=== PATIENT | female | born 1950 | race African-American/Black ===

== ENCOUNTER 2019-10-04 11:26 | Emergency (ER) | payer SELFPAY ==
[~2019-10-04] VITALS: Ht 152.4 cm; Wt 83.0 kg
[2019-10-04 12:01] LABS: Basophils # (auto) 0 uL; Basophils % (auto) 1.2 % (0.0-2.0); Eosinophils # (auto) 0.1 uL; Eosinophils % (auto) 3.8 % (0.0-7.0); Hematocrit 37.3 % (36.0-46.0); Lymphocytes # (auto) 1.3 uL; Lymphocytes % (auto) 33.7 % (10.0-50.0); Mean Corpuscular Hemoglobin 31.5 pg (28.0-32.0); Mean Corpuscular Hgb Conc. 32.2 g/dL (32.0-36.0); Mean Corpuscular Volume 97.6 fL (80.0-100.0); Monocytes # (auto) 0.3 uL; Monocytes % (auto) 6.9 % (0.0-12.0); Neutrophils # (auto) 2.1 uL; Neutrophils % (auto) 54.4 % (37.0-80.0); Nucleated Red Blood Cells % 0.2 %; Platelet Count (auto) 226 10^3/uL (140-450); Red Blood Cells 3.82 10^6/uL (4.0-5.20); Red Cell Distribution Width 15.1 % (11.8-14.3); White Blood Cell 3.9 10^3/uL (4.4-10.8)
[2019-10-04 12:18] LABS: Albumin 3.4 g/dL (3.4-5.0); Anion Gap 5 (5-15); Blood Urea Nitrogen 13 mg/dL (7-18); Calcium 8.6 mg/dL (8.5-10.1); Carbon Dioxide 29 mmol/L (21-32); Chloride 110 mmol/L (98-107); Glucose 86 mg/dL (74-106); Potassium 3.9 mmol/L (3.5-5.1); Sodium 144 mmol/L (136-145)
[2019-10-04 12:26] LABS: Alanine Aminotransferase 24 U/L (13-56); Alkaline Phosphatase 51 U/L (45-117); Aspartate Aminotransferase 26 U/L (15-37); BUN/Creatinine Ratio 12.4; Bilirubin, Total 0.3 mg/dL (0.2-1.0); GFR African American 67 mL/min; GFR Non-African American 55 mL/min; Total Protein 7.2 g/dL (6.4-8.2)
[2019-10-04] MEDS ORDERED: FUROSEMIDE 40 MG/4 ML VIAL IV ONE (14:00)
[2019-10-04 18:46] VITALS: BP 140/71
== END 2019-10-04 18:46 | disposition home or self-care (01) ==
LOC: ER 11:26
DX: R06.02 Shortness of breath (principal); I13.0 Hypertensive heart and chronic kidney disease with heart failure and stage 1 through stage 4 chronic kidney disease, or unspecified chronic kidney disease; E11.22 Type 2 diabetes mellitus with diabetic chronic kidney disease; N18.9 Chronic kidney disease, unspecified; I50.9 Heart failure, unspecified; Z88.2 Allergy status to sulfonamides
CPT/HCPCS: 36415; 71046; 80053; 83735; 83880; 84484; 85025; 93005; 96374; 99284; J1940

== ENCOUNTER 2020-05-20 11:44 | Emergency (ER) | payer SELFPAY ==
[~2020-05-20] VITALS: Ht 152.4 cm; Wt 81.6 kg
[2020-05-20] MEDS ORDERED: cloNIDine HCL 0.1 MG TAB PO ONE (12:30)
[2020-05-20 14:30] VITALS: BP 173/76
== END 2020-05-20 18:14 | disposition home or self-care (01) ==
LOC: ER 11:44
DX: M79.601 Pain in right arm (principal); E11.22 Type 2 diabetes mellitus with diabetic chronic kidney disease; I13.0 Hypertensive heart and chronic kidney disease with heart failure and stage 1 through stage 4 chronic kidney disease, or unspecified chronic kidney disease; I50.9 Heart failure, unspecified; N18.9 Chronic kidney disease, unspecified; E78.5 Hyperlipidemia, unspecified
CPT/HCPCS: 93971

== ENCOUNTER 2022-06-01 22:36 | Emergency (ER) | payer BC ==
[~2022-06-01] VITALS: Ht 157.5 cm; Wt 149.0 kg
[2022-06-01 22:40] VITALS: BP 153/73
== END 2022-06-02 04:38 | disposition left against medical advice (07) ==
LOC: ER 22:36
DX: R04.0 Epistaxis (principal); I13.0 Hypertensive heart and chronic kidney disease with heart failure and stage 1 through stage 4 chronic kidney disease, or unspecified chronic kidney disease; E11.22 Type 2 diabetes mellitus with diabetic chronic kidney disease; N18.9 Chronic kidney disease, unspecified; I50.9 Heart failure, unspecified; E78.5 Hyperlipidemia, unspecified; Z88.2 Allergy status to sulfonamides

== ENCOUNTER 2022-06-24 14:04 | Emergency (ER) | payer BC ==
[~2022-06-24] VITALS: Ht 152.4 cm; Wt 66.4 kg
[2022-06-24 14:20] VITALS: BP 121/62
[2022-06-24 15:40] LABS: Basophils # (auto) 0 10 ^3/uL (0-0.2); Eosinophils # (auto) 0.1 10 ^3/uL (0-0.8); Eosinophils % (auto) 3.3 % (0.0-7.0); Hematocrit 35.6 % (36.0-46.0); Hemoglobin 11.4 g/dL (12.2-16.2); Lymphocytes # (auto) 1.7 10 ^3/uL (0.4-5.4); Lymphocytes % (auto) 39.3 % (10.0-50.0); Mean Corpuscular Hemoglobin 30.5 pg (28.0-32.0); Mean Corpuscular Hgb Conc. 32.1 g/dL (32.0-36.0); Monocytes # (auto) 0.2 10 ^3/uL (0-1.3); Monocytes % (auto) 4.9 % (0.0-12.0); Neutrophils # (auto) 2.3 10 ^3/uL (1.6-8.6); Neutrophils % (auto) 51.5 % (37.0-80.0); Nucleated Red Blood Cells % 0.2 %; Red Blood Cells 3.75 10^6/uL (4.0-5.20); Red Cell Distribution Width 15.1 % (11.8-14.3); White Blood Cell 4.4 10^3/uL (4.4-10.8)
[2022-06-24 16:07] LABS: Potassium 3.7 mmol/L (3.5-5.1)
[2022-06-24 16:24] LABS: Albumin 3.6 g/dL (3.4-5.0); BUN/Creatinine Ratio 15.8; Bilirubin, Total 0.4 mg/dL (0.2-1.0); Calcium 9.4 mg/dL (8.5-10.1)
== END 2022-06-24 22:12 | disposition left against medical advice (07) ==
LOC: ER 14:04
DX: R04.0 Epistaxis (principal); I13.0 Hypertensive heart and chronic kidney disease with heart failure and stage 1 through stage 4 chronic kidney disease, or unspecified chronic kidney disease; E11.22 Type 2 diabetes mellitus with diabetic chronic kidney disease; N18.9 Chronic kidney disease, unspecified; I50.9 Heart failure, unspecified; Z88.2 Allergy status to sulfonamides; Z53.29 Procedure and treatment not carried out because of patient's decision for other reasons
CPT/HCPCS: 30901; 36415; 80053; 84484; 85025

== ENCOUNTER 2023-02-20 13:56 | Emergency (ER) | payer BC ==
[~2023-02-20] VITALS: Ht 152.4 cm; Wt 64.0 kg
[2023-02-20 14:33] LABS: Basophils # (auto) 0 10 ^3/uL (0-0.2); Basophils % (auto) 0.8 % (0.0-2.0); Eosinophils # (auto) 0 10 ^3/uL (0-0.8); Eosinophils % (auto) 0.8 % (0.0-7.0); Hematocrit 40.3 % (36.0-46.0); Hemoglobin 13.2 g/dL (12.2-16.2); Lymphocytes # (auto) 1.2 10 ^3/uL (0.4-5.4); Lymphocytes % (auto) 20.9 % (10.0-50.0); Mean Corpuscular Hemoglobin 31.1 pg (28.0-32.0); Mean Corpuscular Hgb Conc. 32.7 g/dL (32.0-36.0); Monocytes # (auto) 0.3 10 ^3/uL (0-1.3); Monocytes % (auto) 4.4 % (0.0-12.0); Neutrophils # (auto) 4.3 10 ^3/uL (1.6-8.6); Neutrophils % (auto) 73.1 % (37.0-80.0); Nucleated Red Blood Cells % 0.2 %; Red Blood Cells 4.25 10^6/uL (4.0-5.20); Red Cell Distribution Width 13.7 % (11.8-14.3); White Blood Cell 5.9 10^3/uL (4.4-10.8)
[2023-02-20] MEDS ORDERED: cloNIDine HCL 0.1 MG TAB PO ONE (14:45)
[2023-02-20 14:55] LABS: Albumin 3.4 g/dL (3.4-5.0); Calcium 9.3 mg/dL (8.5-10.1); Potassium 3.4 mmol/L (3.5-5.1)
[2023-02-20 14:59] LABS: BUN/Creatinine Ratio 13.1 (10.0-20.0); Bilirubin, Total 0.4 mg/dL (0.2-1.0); Total Protein 6.8 g/dL (6.4-8.2)
[2023-02-20] MEDS ORDERED: AMLO-496 PO (15:41)
[2023-02-20 15:50] VITALS: BP 163/76
== END 2023-02-20 16:01 | disposition home or self-care (01) ==
LOC: ER 13:56
DX: I10 Essential (primary) hypertension (principal); E78.5 Hyperlipidemia, unspecified; I13.0 Hypertensive heart and chronic kidney disease with heart failure and stage 1 through stage 4 chronic kidney disease, or unspecified chronic kidney disease; E11.22 Type 2 diabetes mellitus with diabetic chronic kidney disease; N18.9 Chronic kidney disease, unspecified; I50.89 Other heart failure; Z88.2 Allergy status to sulfonamides; Z91.018 Allergy to other foods
CPT/HCPCS: 36415; 80053; 84484; 85025; 93005

== ENCOUNTER 2024-09-04 05:24 | Inpatient (IN) | payer BC ==
[2024-09-04] VITALS (7 sets, daily range): BP systolic 153–161; BP diastolic 67–74; PULSE 60–68; RESP 16–19; TEMP 98–98.9; O2SAT 92–99
[~2024-09-04] VITALS: Ht 304.8 cm; Wt 66.9 kg
[~2024-09-04 05:24] MED LIST: AMLO1TAB23 PO
--- NOTE | 2024-09-04 07:12 | ECG ---
[facility] Test Date: 2024-09-04 Test Time: 05:29:37 Pat Name: DULCE CAT Department: ED Room: 0287T Gender: F Laboratory Tech: FADUMO : 1950 Requested By: EMERGENCY EMERGENCY Order Number: [id number] Reading MD: Doc Mac Measurements Intervals [place] Rate: 63 P: 25 [place]: 159 QRS: -28 QRSD: 105 T: 61 QT: 418 QTc: 428 Interpretive Statements Sinus rhythm Probable left atrial enlargement Borderline left axis deviation Abnormal R-wave progression, late transition Electronically Signed On 09-06-2024 11:52:45 PST by Doc Mac Please click the below link to view image of tracing.
--- NOTE | 2024-09-04 07:34 | ED.PDOC ---
History of Present Illness HPI Comments 73 y/o F, with a Hx of CA, CHF, CKF, DM, HLD, and HTN, is BIBA for c/o headache since 399, today. Per EMS report, patient endorses unprovoked and sudden onset of headache, this morning, that has been progressively worsening since 399. Patient was found by EMS hypertensive, with a blood pressure of 208/106 and patient commenting on running out of her HTN medications for the past few days. Patient, upon arrival, was found with a blood pressure of 180/90, with all remaining vitals within normal limits. Patient denies having any dizziness, vision or speech changes, chest pain, shortness of breath, fever, chills, or other associated symptoms or modifiers at this time. Chief Complaint: Headache Time Seen by MD: 06:40 Primary Care Provider: NONE Reviewed Notes: Nurses Notes, Inside Phone Sales Notes, Medications, Allergies Allergies: Coded Allergies: Sulfa Antibiotics (Verified Allergy, Unknown, 06/01/22) Uncoded Allergies: NUTS (Allergy, Severe, 02/20/23) Home Meds Active Scripts Amlodipine Besylate (Amlodipine Besylate) 10 Mg Tab, 10 MG PO DAILY for 90 Days, #90 TAB Prov:AYLA OCAMPO DO 02/20/23 Information Source: Patient, Emergency Med Personnel Mode of Arrival: EMS Severity: Moderate Timing: Hours Duration: Since onset Prehospital treatment: 12 Lead EKG, Accucheck (80), Heel Sander Rubber Past Medical History PAST MEDICAL HISTORY: Cancer, CHF, CKF, DM, High Lipids, HTN Surgical History: Hysterectomy NEUROLOGY PROFESSOR History: No Pertinent NEUROLOGY PROFESSOR History Family History Family History: Family hx of Cancer Family History (Other): COPD Social History Smoker: Non-Smoker Alcohol: Occasionally Drugs: Denies Drug Use Lives In: Home Constitutional: denies: chills, diaphoresis, fatigue, fever, malaise, sweats, weakness, others EENTM: denies: blurred vision, double vision, ear bleeding, ear discharge, ear drainage, ear pain, ear ringing, eye pain, eye redness, hearing loss, mouth pain, mouth swelling, nasal discharge, nose bleeding, nose congestion, nose pain, photophobia, tearing, throat pain, throat swelling, voice changes, others Respiratory: denies: cough, hemoptysis, orthopnea, SOB at rest, shortness of breath, SOB with excertion, stridor, wheezing, others Cardiovascular: denies: chest pain, dizzy spells, diaphoresis, Dyspnea on exertion, edema, irregular heart beat, left arm pain, lightheadedness, palpitations, PND, syncope, others Gastrointestinal: denies: abdomen distended, abdominal pain, blood streaked bowels, constipated, diarrhea, dysphagia, difficulty swallowing, hematemesis, melena, nausea, poor appetite, poor fluid intake, rectal bleeding, rectal pain, vomiting, others Genitourinary: denies: abnormal vagina bleeding, burning, dyspareunia, dysuria, flank pain, frequency, hematuria, incontinence, pain, , vagina discharge, urgency, others Neurological: reports: headache; denies: dizziness, fainting, left sided numbness, left sided weakness, numbness, paresthesia, pre-existing deficit, righ t sided numbness, right sided weakness, seizure, speech problems, tingling, tremors, weakness, others Musculoskeletal: denies: back pain, gout, joint pain, joint swelling, muscle pain, muscle stiffness, neck pain, others Integumetry: denies: bruises, change in color, change in hair/nails, dryness, laceration, lesions, lumps, rash, wounds, others Allergic/Immunocompromised: denies: Difficulty Healing, Frequent Infections, Hives, Itching, others Hematologic/Lymphatic: denies: anemia, blood clots, easy bleeding, easy bruising, swollen glands, others Endocrine: denies: excessive hunger, excessive sweating, excessive thirst, excessive urination, flushing, intolerance to cold, intolerance to heat, unexplained weight gain, unexplained weight loss, others Psychiatric: denies: anxiety, bipolar disorder, depression, hopeless, panic disorder, schizophrenia, sleepless, suicidal, others All Other Systems: Reviewed and Negative Physical Exam General Appearance: Moderate Distress HEENT: Normal ENT Inspection, Pharynx Normal, TMs Normal Neck: Full Range of Motion, Non-Tender, Normal, Normal Inspection Respiratory: Chest Non-Tender, Lungs Clear, No Accessory Muscle Use, No Respiratory Distress, Normal Breath Sounds Cardiovascular: No Edema, No JVD, No Murmur, No Gallop, Normal Peripheral Pulses, Regular Rate/Rhythm Breast Exam: Deferred Gastrointestinal: No Organomegaly, Non Tender, No Pulsatile Mass, Normal Bowel Sounds, Soft Genitalia: Deferred Pelvic: Deferred Rectal: Deferred Extremities: No calf tenderness, Normal capillary refill, Normal inspection, Normal range of motion, Non-tender, No pedal edema Musculoskeletal : Apperance: Normal Neurologic: Alert, motorized squad sergeant II-XII nml as Tested, No Motor Deficits, Normal Affect, Normal Mood, No Sensory Deficits Cerebellar Function: Normal Reflexes: Normal Skin: Dry, Normal Color, Warm Peripheral Pulses: 3+ Radial (R), 3+ Radial (L) Lymphatic: No Adenopathy Was a procedure done? Was a procedure done?: No EKG EKG : Pulse Rate (adult): 63 [place]: Normal Cardiac Rhythm: NSR Block: None Hypertrophy: None ST: Normal Differential Dx Considerations may include: migraines, tensions headache, HTN emergency, medication non-compliancy, uncontrolled HTN X-Ray, Labs, Meds, VS Vital Signs Date Time Temp Pulse Resp B/P (MAP) Pulse Ox O2 Delivery O2 Flow Rate FiO2 09/04/24 07:33 63 09/04/24 07:00 66 20 136/64 (88) 97 09/04/24 05:40 98.1 59 16 156/76 (102) 97 98.1 09/04/24 05:40 67 16 97 Room Air* 0 21 09/04/24 05:29 63 09/04/24 05:28 98.6 72 16 180/90 (120) 97 Lab Test 09/04/24 07:18 Range/Units White Blood Count 3.9 L 4.4-10.8 10^3/uL Red Blood Count 4.28 4.0-5.20 10^6/uL Hemoglobin 13.6 12.2-16.2 g/dL Hematocrit 41.6 36.0-46.0 % Mean Corpuscular Volume 97.2 80.0-100.0 fL Mean Corpuscular Hemoglobin 31.7 28.0-32.0 pg Mean Corpuscular Hemoglobin Concent 32.6 32.0-36.0 g/dL Red Cell Distribution Width 14.2 11.8-14.3 % Platelet Count 235 140-450 10^3/uL Mean Platelet Volume 7.8 6.9-10.8 fL Neutrophils (%) (Auto) 48.4 37.0-80.0 % Lymphocytes (%) (Auto) 40.2 10.0-50.0 % Monocytes (%) (Auto) 7.3 0.0-12.0 % Eosinophils (%) (Auto) 3.4 0.0-7.0 % Basophils (%) (Auto) 0.7 0.0-2.0 % Neutrophils # (Auto) 1.9 1.6-8.6 10 ^3/uL Lymphocytes # (Auto) 1.6 0.4-5.4 10 ^3/uL Monocytes # (Auto) 0.3 0-1.3 10 ^3/uL Eosinophils # (Auto) 0.1 0-0.8 10 ^3/uL Basophils # (Auto) 0 0-0.2 10 ^3/uL Nucleated Red Blood Cells 0.2 % Sodium Level Pending Potassium Level Pending Chloride Level Pending Carbon Dioxide Level Pending Anion Gap Pending Blood Urea Nitrogen Pending Creatinine Pending Glomerular Filtration Rate Calc Pending BUN/Creatinine Ratio Pending Serum Glucose Pending Calcium Level Pending Patient alert. Complaining of headache. Possibly will need MRI. Blood pressure elevated. Could be related to blood pressure. States that she never had this kind of headache in the past. Had to use the ambulance. Hemoglobin within normal limits. Saturation pristine on room air. Reviewed her history. Explained to the patient. Time of 1ST Reevaluation: 07:10 Reevaluation 1ST: Unchanged Patient Education/Counseling: Diagnosis, Treatment Family Education/Counseling: No Family Present Departure 1 Departure Time of Disposition: 08:14 Impression: Primary Impression: Hypertensive urgency Additional Impressions: Hyperglycemia Severe headache Disposition: 09 ADMITTED INPATIENT Admit to: Med Surg Condition: Guarded Critical Care Note Critical Care Time?: Yes (45 min-critical care time only) Stability Stability form required: No Heart Score Heart Score: Heart Score Response (Comments) Value History N/A 0 EKG N/A 0 Age N/A 0 Risk Factors N/A 0 Troponin N/A 0 Total 0 I personally scribed for MARIE QUINTANA MD ([email or web address]) on 09/04/24 at 07:33. Electronically submitted by Jony Flores ([email or web address]). MARIE QUINTANA MD Sep 04, 2024 07:33
[2024-09-04 07:56] LABS: Basophils # (auto) 0 10 ^3/uL (0-0.2); Basophils % (auto) 0.7 % (0.0-2.0); Eosinophils # (auto) 0.1 10 ^3/uL (0-0.8); Eosinophils % (auto) 3.4 % (0.0-7.0); Hematocrit 41.6 % (36.0-46.0); Hemoglobin 13.6 g/dL (12.2-16.2); Lymphocytes # (auto) 1.6 10 ^3/uL (0.4-5.4); Lymphocytes % (auto) 40.2 % (10.0-50.0); Mean Corpuscular Hemoglobin 31.7 pg (28.0-32.0); Mean Corpuscular Hgb Conc. 32.6 g/dL (32.0-36.0); Mean Corpuscular Volume 97.2 fL (80.0-100.0); Monocytes # (auto) 0.3 10 ^3/uL (0-1.3); Monocytes % (auto) 7.3 % (0.0-12.0); Neutrophils # (auto) 1.9 10 ^3/uL (1.6-8.6); Neutrophils % (auto) 48.4 % (37.0-80.0); Nucleated Red Blood Cells % 0.2 %; Platelet Count (auto) 235 10^3/uL (140-450); Red Blood Cells 4.28 10^6/uL (4.0-5.20); Red Cell Distribution Width 14.2 % (11.8-14.3); White Blood Cell 3.9 10^3/uL (4.4-10.8)
[2024-09-04 08:09] LABS: BUN/Creatinine Ratio 12.9 (10.0-20.0); Blood Urea Nitrogen 13 mg/dL (9-23); Glucose 89 mg/dL (74-106)
[2024-09-04 08:10] LABS: Chloride 107 mmol/L (98-107); Potassium 3.8 mmol/L (3.5-5.1); Sodium 143 mmol/L (136-145)
[2024-09-04 08:14] LABS: Calcium 9.3 mg/dL (8.7-10.4)
[2024-09-04] MEDS ORDERED: DOCUSATE SOD 100 MG CAP PO PRN ×2 (08:30→23:15)
[2024-09-04] MEDS ORDERED: hydrALAZINE HCL 20 MG/ML VL IV PRN (08:30)
[2024-09-04] MEDS ORDERED: ACETAMINOPHEN 325 MG TAB PO PRN (08:30)
[2024-09-04] MEDS ORDERED: ONDANSETRON HCL 4 MG/2 ML VIAL IV PRN (08:30)
[2024-09-04] MEDS ORDERED: DEXTROSE (50%) 50ML SYRG IV PRN ×2 (08:30→23:15)
[2024-09-04] MEDS ORDERED: HYDROcodone-ACET 5/325MG TAB PO PRN (08:30)
[2024-09-04 08:36] LABS: Anion Gap 7 (5-15); Carbon Dioxide 29 mmol/L (20-31)
--- NOTE | 2024-09-04 10:38 | DVHHP2 ---
History of Present Illness Reason for Visit: Hypertensive urgency History of Present Illness The patient is a 73-year-old female with past medical history of breast cancer, CHF, DM, HLD, and hypertension who presented to [facility] ED for evaluation of elevated blood pressure. Patient's symptoms progressively get worse with sudden onset of headache, hypertensive with blood pressure of 208/106, en route to our facility ED. patient reports she ran out of her hypertension medication for the past few days. Patient was seen and evaluated in the ED, laboratory data shows WBC 3.9, platelets 235, sodium 143, potassium 3.8, BUN 13, creatinine 1.01, glucose 89, BNP 22.18, blood pressure 136/64, heart rate 66, temperature 98.1 F, O2 saturation 97% on room air. Please see medication orders section in the computer. On my assessment, patient denied chest pain, no headache, no dizziness, no diaphoresis, no shortness of breath, no nausea, no vomiting, no fever, no chills. Patient was admitted for further evaluation medical management. Past Medical History Breast Cancer, CHF, CKF, DM, High Lipids, HTN Past Surgical History Hysterectomy Family History Reviewed, noncontributory to the management of this case. Past Social History The patient lives at home, denies smoking, alcohol or illicit drugs abuse. Review of Systems Constitutional: Yes: Weakness; No: Fever, Chills, Sweats, Malaise, Other Eyes: No: Pain, Vision change, Conjunctivae inflammation, Eyelid inflammation, Other, Redness ENT: No: Ear pain, Ear discharge, Nose pain, Nose discharge, Nose congestion, Mouth pain, Mouth swelling, Throat pain, Throat swelling, Other Respiratory: No: Cough, Dry, Shortness of breath, SOB with excertion, Wheezing, Hemoptysis, Pleuritic Pain, Sputum, Wheezing, Other Cardiovascular: Other (Hypertension); No: Chest Pain, Palpitations, Orthopnea, Paroxysmal Noc. Dyspnea, Edema, Lt Headedness Gastrointestinal: No: Nausea, Vomiting, Abdominal Pain, Diarrhea, Constipation, Melena, Hematochezia, Other Genitourinary: No Dysuria, No Frequency, No Incontinence, No Hematuria, No Retention, No Other Musculoskeletal: No: other, neck pain, shoulder pain, arm pain, back pain, hand pain, leg pain, foot pain Skin: No: Rash, Lesions, Jaundice, Bruising, Other Neurological: Other (Headache); No: Weakness, Numbness, Incoordination, Change in speech, Confusion, Seizures Allergies: Coded Allergies: Sulfa Antibiotics (Verified Allergy, Unknown, 06/01/22) Uncoded Allergies: NUTS (Allergy, Severe, 02/20/23) Medications Current Medications Medications Dose Ordered Sig/Maxi Route Start Time Stop Time Status Last Admin Dose Admin Diagnostic Test (Pha) 1 strip ACHS 09/04/24 11:30 Insulin Human Regular ACHS SC 09/04/24 11:30 Dextrose 50 ml UD PRN IV 09/04/24 08:30 Sodium Chloride 10 ml Q8HR IV 09/04/24 14:00 Acetaminophen/ Hydrocodone Bitart 1 tab Q4HP PRN PO 09/04/24 08:30 Ondansetron HCl 4 mg Q4HP PRN IV 09/04/24 08:30 Docusate Sodium 100 mg BIDPRN PRN PO 09/04/24 08:30 Acetaminophen 650 mg Q6HP PRN PO 09/04/24 08:30 Hydralazine HCl 10 mg Q6HP PRN IV 09/04/24 08:30 Exam Vital Signs Vital Signs Date Time Temp Pulse Resp B/P (MAP) Pulse Ox O2 Delivery O2 Flow Rate FiO2 09/04/24 09:00 69 17 144/62 (89) 95 09/04/24 07:30 Room Air* 0 21 09/04/24 05:40 98.1 98.1 General Appearance: Alert, Oriented X3, Cooperative, No acute distress HEENT: Atraumatic, PERRLA, EOMI, Mucous membr. moist/pink Respiratory: Clear to auscultation, Normal air movement Cardiovascular: Regular rate, Normal S1, Normal S2, No murmurs Abdominal: Normal bowel sounds, Soft, No tenderness, No hepatospenomegaly, No masses Extremities: No clubbing, No cyanosis, No edema, Normal pulses, No tenderness/swelling Neuro: Normal speech, Normal tone, Sensation intact, Cranial nerves 3-12 NL, Reflexes 2+, Other (Generalized weakness) Psych/Mental Status: Mental status NL, Mood NL Labs/Xrays Labs Test 09/04/24 07:18 Range/Units White Blood Count 3.9 L 4.4-10.8 10^3/uL Red Blood Count 4.28 4.0-5.20 10^6/uL Hemoglobin 13.6 12.2-16.2 g/dL Hematocrit 41.6 36.0-46.0 % Mean Corpuscular Volume 97.2 80.0-100.0 fL Mean Corpuscular Hemoglobin 31.7 28.0-32.0 pg Mean Corpuscular Hemoglobin Concent 32.6 32.0-36.0 g/dL Red Cell Distribution Width 14.2 11.8-14.3 % Platelet Count 235 140-450 10^3/uL Mean Platelet Volume 7.8 6.9-10.8 fL Neutrophils (%) (Auto) 48.4 37.0-80.0 % Lymphocytes (%) (Auto) 40.2 10.0-50.0 % Monocytes (%) (Auto) 7.3 0.0-12.0 % Eosinophils (%) (Auto) 3.4 0.0-7.0 % Basophils (%) (Auto) 0.7 0.0-2.0 % Neutrophils # (Auto) 1.9 1.6-8.6 10 ^3/uL Lymphocytes # (Auto) 1.6 0.4-5.4 10 ^3/uL Monocytes # (Auto) 0.3 0-1.3 10 ^3/uL Eosinophils # (Auto) 0.1 0-0.8 10 ^3/uL Basophils # (Auto) 0 0-0.2 10 ^3/uL Nucleated Red Blood Cells 0.2 % Sodium Level 143 136-145 mmol/L Potassium Level 3.8 3.5-5.1 mmol/L Chloride Level 107 98-107 mmol/L Carbon Dioxide Level 29 20-31 mmol/L Anion Gap 7 5-15 Blood Urea Nitrogen 13 9-23 mg/dL Creatinine 1.01 0.550-1.02 mg/dL Glomerular Filtration Rate Calc 58 >90 mL/min BUN/Creatinine Ratio 12.9 10.0-20.0 Serum Glucose 89 74-106 mg/dL Calcium Level 9.3 8.7-10.4 mg/dL B-Type Natriuretic Peptide 22.18 0-100 pg/mL Assessment/Plan Assessment/Plan Hypertensive urgency Severe headache Generalized weakness Plan 1. Admit to telemetry unit 2. Breathing treatment 3. Pain control management 4. Management of fluids and electrolytes 5. Consultation for hospitalist 6. Diagnostic tests x-ray 7. DVT prophylaxis-on SCDs 8. Repeat labs CBC, CMP in a.m. 9. Continue with current medical management 10. Treatment plan discussed with patient and RN. Patient verbalized understanding. Plan discussed with: Patient, Other (RN) My Orders Orders - JOSEF CHI DNP Procedure Category Date Status Time Consistent DIET 09/04/24 Transmitted Carb(Ccho)Diabetes Breakfast Glucose Blood PHA 09/04/24 In Process (Accu-Chek Comfort 11:30 Insulin R (Human) PHA 09/04/24 In Process (Insulin R) 11:30 Dextrose 50% Syringe PHA 09/04/24 In Process 08:30 Allergies WILLIAM 09/04/24 In Process 08:21 Code Status CODE 09/04/24 Transmitted 08:21 Sodium Chloride Lock PHA 09/04/24 In Process (Saline Lock Ns) 14:00 Oxygen Per Hour RT 09/04/24 Transmitted 08:21 Hydrocodone-Acet PHA 09/04/24 In Process 5/325mg Tab (Romeo 08:30 Ondansetron Hcl PHA 09/04/24 In Process (Zofran) 08:30 Docusate Sodium PHA 09/04/24 In Process Capsule (Colace 08:30 Complete Blood Count LAB 09/05/24 Verified 04:00 Comprehensive LAB 09/05/24 Verified Metabolic Panel 04:00 Condition: Serious WILLIAM 09/04/24 In Process 08:21 Acetaminophen Tablet PHA 09/04/24 In Process (Tylenol Tablet) 08:30 Bedrest With Bathroom WILLIAM 09/04/24 In Process Privileg 08:21 Sequential WILLIAM 09/04/24 In Process Compression Device Hydralazine Injection PHA 09/04/24 In Process (Apresoline Inject 08:30 Admit ADMIT 09/04/24 Verified 10:36 Nitroglycerin PHA 09/04/24 Verified Sublingual (Ntrostat 10:45 Morphine Sulfate PHA 09/04/24 Verified Injection 10:45 Notify Of Changes [facility] 09/04/24 Verified From Base 10:36 General Assistant For [facility] 09/04/24 Verified 24 Hours 10:36 Emergency Dysrhythmia WILLIAM 09/04/24 Verified Protocol 10:36 Rhythm Strips Once [facility] 09/04/24 Verified Every Shift 10:36 Oxygen By Nasal RT 09/04/24 Verified Cannula 10:36 Problem List: (1) Hypertensive urgency (2) Severe headache (3) Generalized weakness Date of Service: Sep 04, 2024 Billing Provider: JOSEF CHI DNP Common Visit Codes: [id number] INP/OBS CARE (HIGH) JOSEF CHI DNP Sep 04, 2024 10:38
[2024-09-04] MEDS ORDERED: MORPHINE SULFATE INJ 2 MG/ml SYRG IV PRN ×2 (10:45→23:15)
[2024-09-04] MEDS ORDERED: NITROGLYCERIN 0.4 MG SL TAB SL PRN ×2 (10:45→23:15)
[2024-09-04 11:12] LABS: Urine Bacteria None Seen /hpf (None Seen)
[2024-09-04 11:29] LABS: Urine Blood Negative /uL (Negative); Urine Clarity Clear (Clear); Urine Color Light-Yellow (Yellow); Urine Protein, UAD Negative (Negative); Urine Specific Gravity 1.015 (1.001-1.035); Urine Urobilinogen Normal (Negative); Urine WBC 1 /hpf (0 - 5)
[2024-09-04] MEDS: InsuLIN REG 1unit/0.01ml Soln (100units/ml) SC SCH (11:30)
[2024-09-04] MEDS: ACCU-CHEK COMFORT CURVE STRIP VI SCH (11:30)
[2024-09-04] MEDS ORDERED: METF-370 PO (13:19)
[2024-09-04] MEDS ORDERED: ATOR-47 PO (13:19)
[2024-09-04] MEDS: INFLUENZA TRIVALENT 2024-2025 0.5 ML INJ IM ONE (13:30)
[2024-09-04] MEDS: SODIUM CHLOR 0.9% PF (SALINE LOCK) 10ML VIAL/SYR IV SCH (14:00)
[2024-09-04] MEDS: HYDROcodone-ACET 5/325MG TAB PO PRN (23:16)
[2024-09-05] VITALS (9 sets, daily range): BP systolic 99–168; BP diastolic 58–87; PULSE 60–81; RESP 18–20; TEMP 97.8–98.6; O2SAT 94–98
[2024-09-05] MEDS: hydrALAZINE HCL 20 MG/ML VL IV PRN (01:26)
[2024-09-05] MEDS: ACETAMINOPHEN 325 MG TAB PO PRN (02:52)
[2024-09-05] MEDS: ONDANSETRON HCL 4 MG/2 ML VIAL IV PRN (04:24)
[2024-09-05] MEDS: SODIUM CHLOR 0.9% PF (SALINE LOCK) 10ML VIAL/SYR IV SCH (05:50)
[2024-09-05] MEDS: cloNIDine HCL 0.1 MG TAB PO ONE (06:24)
[2024-09-05] MEDS: InsuLIN REG 1unit/0.01ml Soln (100units/ml) SC SCH (06:26)
[2024-09-05] MEDS: ACCU-CHEK COMFORT CURVE STRIP VI SCH (06:26)
[2024-09-05] MEDS: amLODIPine BESYLATE 5 MG TAB PO ONE (14:06)
--- NOTE | 2024-09-05 14:43 | DVHPN2 ---
Subjective 73-year-old female with hypertension admitted for hypertensive urgency. Called son [phone] to get collateral. Per patient son, she is walking around at home with a walker, independent in most of, she lives with his brother with she he gave me the phone number to get further collateral. However her sonTerry is the primary contact centre supervisor while in the hospital. Patient reported has not been taking medication for the past couple of days because she missed it, however collateral from family reported that she might miss more than that as she is unable to take care of herself. Otherwise no other complaints from patient. We will obtain more collateral from family. Reviewed: H&P Changes from previous H/P or p: No Changes Eyes: No Pain, No Vision change, No Conjunctivae inflammation, No Eyelid inflammation, No Other, No Redness ENT: No Ear pain, No Ear discharge, No Nose pain, No Nose discharge, No Nose congestion, No Mouth pain, No Mouth swelling, No Throat pain, No Throat swelling, No Other Cardiovascular: No Chest Pain, No Palpitations, No Orthopnea, No Paroxysmal Noc. Dyspnea, No Edema, No Lt Headedness; Other (Hypertension) Respiratory: No Cough, No Dry, No Shortness of breath, No SOB with excertion, No Wheezing, No Hemoptysis, No Pleuritic Pain, No Sputum, No Other Gastrointestinal: No Nausea, No Vomiting, No Abdominal Pain, No Diarrhea, No Constipation, No Melena, No Hematochezia, No Other Genitourinary: No Dysuria, No Frequency, No Incontinence, No Hematuria, No Retention, No Other Musculoskeletal: No other, No neck pain, No shoulder pain, No arm pain, No back pain, No hand pain, No leg pain, No foot pain Skin: No Rash, No Lesions, No Jaundice, No Bruising, No Other Objective Vitals Vital Signs Date Time Temp Pulse Resp B/P (MAP) Pulse Ox O2 Delivery O2 Flow Rate FiO2 09/05/24 14:06 142/62 09/05/24 13:00 97.8 65 20 94 97.8 09/05/24 08:00 Room Air* 0 21 Intake/Output Intake and Output 09/05/24 07:00 Intake Total 1175 ml Balance 1175 ml Intake Oral 1175 ml # Voids 5 Exam Alert, oriented x3 PERRLA No JVD Clear breath sounds bilaterally S1-S2 regular rate and rhythm no murmur Abdomen soft nontender, no hepatomegaly Equal strength bilaterally on upper and lower extremities No lower extremity edema Medications Current Medications Medications Dose Ordered Sig/Maxi Route Start Time Stop Time Status Last Admin Dose Admin Diagnostic Test (Pha) 1 strip ACHS 09/05/24 07:00 09/05/24 11:14 1 STRIP Insulin Human Regular ACHS SC 09/05/24 07:00 Dextrose 50 ml UD PRN IV 09/04/24 23:15 Sodium Chloride 10 ml Q8HR IV 09/05/24 06:00 09/05/24 14:07 10 ML Acetaminophen/ Hydrocodone Bitart 1 tab Q4HP PRN PO 09/04/24 23:15 09/05/24 04:25 1 TAB Ondansetron HCl 4 mg Q4HP PRN IV 09/04/24 23:15 09/05/24 04:24 4 MG Docusate Sodium 100 mg BIDPRN PRN PO 09/04/24 23:15 Acetaminophen 650 mg Q6HP PRN PO 09/04/24 23:15 09/05/24 02:52 650 MG Nitroglycerin 0.4 mg Q5MINP PRN SL 09/04/24 23:15 Morphine Sulfate 2 mg Q30M PRN IV 09/04/24 23:15 Amlodipine Besylate 10 mg DAILY PO 09/06/24 10:00 Laboratory Results Laboratory Tests 09/04/24 07:18 Urinalysis Test 09/04/24 10:14 Urine Color Light-yellow (Yellow) Urine Clarity Clear (Clear) Urine pH 7.0 (5.0-9.0) Urine Specific [place] 1.015 (1.001-1.035) Urine Protein Negative (Negative) Urine Ketones Negative (Negative) Urine Blood Negative /uL (Negative) Urine Nitrite Negative (Negative) Urine Bilirubin Negative (Negative) Urine Urobilinogen Normal mg/dL (Negative) Urine Leukocyte Esterase Trace /uL (Negative) Urine RBC 1 /hpf (0 - 4) Urine WBC 1 /hpf (0 - 5) Urine Squamous Epithelial Cells Few /hpf (<5) Urine Bacteria None seen /hpf (None Seen) Urine Glucose Normal mg/dL (Normal) Labs and/or images reviewed: Labs reviewed by me, Image(s) reviewed by me Assessment/Plan Assessment/Plan History of breast cancer Hypertension, doubt emergency Likely baseline dementia Ruy-owveihx-liskdtdyd diabetes Restart home medication amlodipine 10 Insulin sliding scale for now Fingerstick x4 We will obtain further collateral from family PT consult Fall precaution Delirium precaution Diet diabetic DVT prophylaxis Lovenox Plan discussed with: Patient, Son My Orders Orders - URSULA SWIFT MD Procedure Category Date Status Time Amlodipine Tablet PHA 09/06/24 In Process (Norvasc Tablet) 10:00 Date of Service: Sep 05, 2024 Billing Provider: URSULA SWIFT MD Common Visit Codes: [id number] INP/OBS CARE(HIGH) URSULA SWIFT MD Sep 05, 2024 14:43
[2024-09-06] VITALS (7 sets, daily range): BP systolic 123–165; BP diastolic 57–80; PULSE 50–72; RESP 16–19; TEMP 98.1–99; O2SAT 95–99
[2024-09-06] MEDS: cloNIDine HCL 0.1 MG TAB PO ONE (05:50)
[2024-09-06] MEDS: amLODIPine BESYLATE 5 MG TAB PO SCH (10:15)
[2024-09-06] MEDS: LISINOPRIL 5 MG TAB PO SCH (10:16)
--- NOTE | 2024-09-06 19:42 | DVHPN2 ---
Subjective 73-year-old female with hypertension admitted for hypertensive urgency. Called son [phone] to get collateral. Per patient son, she is walking around at home with a walker, independent in most of, she lives with his brother with she he gave me the phone number to get further collateral. However her sonTerry is the primary contact center representative while in the hospital. Patient reported has not been taking medication for the past couple of days because she missed it, however collateral from family reported that she might miss more than that as she is unable to take care of herself. Otherwise no other complaints from patient. We will obtain more collateral from family. Reviewed: H&P Changes from previous H/P or p: No Changes Eyes: No Pain, No Vision change, No Conjunctivae inflammation, No Eyelid inflammation, No Other, No Redness ENT: No Ear pain, No Ear discharge, No Nose pain, No Nose discharge, No Nose congestion, No Mouth pain, No Mouth swelling, No Throat pain, No Throat swelling, No Other Cardiovascular: No Chest Pain, No Palpitations, No Orthopnea, No Paroxysmal Noc. Dyspnea, No Edema, No Lt Headedness; Other (Hypertension) Respiratory: No Cough, No Dry, No Shortness of breath, No SOB with excertion, No Wheezing, No Hemoptysis, No Pleuritic Pain, No Sputum, No Other Gastrointestinal: No Nausea, No Vomiting, No Abdominal Pain, No Diarrhea, No Constipation, No Melena, No Hematochezia, No Other Genitourinary: No Dysuria, No Frequency, No Incontinence, No Hematuria, No Retention, No Other Musculoskeletal: No other, No neck pain, No shoulder pain, No arm pain, No back pain, No hand pain, No leg pain, No foot pain Skin: No Rash, No Lesions, No Jaundice, No Bruising, No Other Objective Vitals Vital Signs Date Time Temp Pulse Resp B/P (MAP) Pulse Ox O2 Delivery O2 Flow Rate FiO2 09/06/24 17:00 99.0 63 18 144/57 (86) 96 99.0 09/06/24 08:00 Room Air* 0 21 Intake/Output Intake and Output 09/06/24 07:00 Intake Total 800 ml Balance 800 ml Intake Oral 800 ml # Voids 4 Exam Alert, oriented x3 PERRLA No JVD Clear breath sounds bilaterally S1-S2 regular rate and rhythm no murmur Abdomen soft nontender, no hepatomegaly Equal strength bilaterally on upper and lower extremities No lower extremity edema Medications Current Medications Medications Dose Ordered Sig/Maxi Route Start Time Stop Time Status Last Admin Dose Admin Diagnostic Test (Pha) 1 strip ACHS 09/05/24 07:00 09/06/24 16:39 1 STRIP Insulin Human Regular ACHS SC 09/05/24 07:00 Dextrose 50 ml UD PRN IV 09/04/24 23:15 Sodium Chloride 10 ml Q8HR IV 09/05/24 06:00 09/06/24 14:29 10 ML Docusate Sodium 100 mg BIDPRN PRN PO 09/04/24 23:15 Acetaminophen 650 mg Q6HP PRN PO 09/04/24 23:15 09/05/24 02:52 650 MG Amlodipine Besylate 10 mg DAILY PO 09/06/24 10:00 09/06/24 10:15 10 MG Lisinopril 2.5 mg DAILY PO 09/06/24 10:00 09/06/24 10:16 2.5 MG Laboratory Results Laboratory Tests 09/04/24 07:18 Urinalysis Test 09/04/24 10:14 Urine Color Light-yellow (Yellow) Urine Clarity Clear (Clear) Urine pH 7.0 (5.0-9.0) Urine Specific [place] 1.015 (1.001-1.035) Urine Protein Negative (Negative) Urine Ketones Negative (Negative) Urine Blood Negative /uL (Negative) Urine Nitrite Negative (Negative) Urine Bilirubin Negative (Negative) Urine Urobilinogen Normal mg/dL (Negative) Urine Leukocyte Esterase Trace /uL (Negative) Urine RBC 1 /hpf (0 - 4) Urine WBC 1 /hpf (0 - 5) Urine Squamous Epithelial Cells Few /hpf (<5) Urine Bacteria None seen /hpf (None Seen) Urine Glucose Normal mg/dL (Normal) Labs and/or images reviewed: Labs reviewed by me, Image(s) reviewed by me Assessment/Plan Assessment/Plan History of breast cancer Hypertension, doubt emergency Likely baseline dementia Gyh-ctmwbzg-uzbulmevm diabetes Restart home medication amlodipine 10 add lisinopril Insulin sliding scale for now, dc with metformin Fingerstick x4 PT consult Fall precaution Delirium precaution social service consult for home health safety checks Diet diabetic DVT prophylaxis Lovenox Plan discussed with: Son My Orders Orders - URSULA SWIFT MD Procedure Category Date Status Time Communication Order ORDERS 09/06/24 Transmitted 08:33 Lisinopril Tablet PHA 09/06/24 In Process (Zestril Tablet) 10:00 Pt Request For Service PT 09/06/24 Logged 08:36 * Yard Engineer CONS 09/06/24 Transmitted Consult 15:08 Date of Service: Sep 06, 2024 Billing Provider: URSULA SWIFT MD Common Visit Codes: [id number] INP/OBS CARE(HIGH) URSULA SWIFT MD Sep 06, 2024 19:42
[2024-09-07 01:00] VITALS: BP 141/73; PULSE 65; RESP 16; TEMP 98.4; O2SAT 96
[2024-09-07 05:00] VITALS: BP 149/62; PULSE 83; RESP 16; TEMP 98; O2SAT 98
[2024-09-07 06:20] LABS: Basophils # (auto) 0 10 ^3/uL (0-0.2); Basophils % (auto) 0.3 % (0.0-2.0); Eosinophils # (auto) 0.1 10 ^3/uL (0-0.8); Eosinophils % (auto) 1.1 % (0.0-7.0); Hematocrit 42.9 % (36.0-46.0); Hemoglobin 14.2 g/dL (12.2-16.2); Lymphocytes # (auto) 1.8 10 ^3/uL (0.4-5.4); Lymphocytes % (auto) 34.3 % (10.0-50.0); Mean Corpuscular Hgb Conc. 33.1 g/dL (32.0-36.0); Mean Corpuscular Volume 96.4 fL (80.0-100.0); Monocytes # (auto) 0.4 10 ^3/uL (0-1.3); Monocytes % (auto) 8.4 % (0.0-12.0); Neutrophils # (auto) 2.9 10 ^3/uL (1.6-8.6); Neutrophils % (auto) 55.9 % (37.0-80.0); Nucleated Red Blood Cells % 0.1 %; Platelet Count (auto) 251 10^3/uL (140-450); Red Blood Cells 4.45 10^6/uL (4.0-5.20); Red Cell Distribution Width 13.7 % (11.8-14.3); White Blood Cell 5.3 10^3/uL (4.4-10.8)
[2024-09-07 06:34] LABS: Anion Gap 6 (5-15); Carbon Dioxide 29 mmol/L (20-31); Chloride 105 mmol/L (98-107); Potassium 3.3 mmol/L (3.5-5.1); Sodium 140 mmol/L (136-145)
[2024-09-07 06:36] LABS: Calcium 9.6 mg/dL (8.7-10.4)
[2024-09-07 06:40] LABS: Glucose 92 mg/dL (74-106)
[2024-09-07 06:41] LABS: BUN/Creatinine Ratio 16.5 (10.0-20.0); Blood Urea Nitrogen 16 mg/dL (9-23)
[2024-09-07 08:00] VITALS: PULSE 64
[2024-09-07 08:54] VITALS: BP 163/81; PULSE 68; RESP 20; TEMP 98.2; O2SAT 96
[2024-09-07 12:32] VITALS: BP 135/62; PULSE 73; RESP 18; TEMP 98.1; O2SAT 97
[2024-09-07] MEDS ORDERED: METF-370 PO (13:08)
[2024-09-07] MEDS ORDERED: AMLO1TAB23 PO (13:08)
[2024-09-07] MEDS ORDERED: ATOR-47 PO (13:08)
[2024-09-07] MEDS ORDERED: LISI-275 PO (13:08)
[2024-09-07] MEDS: POTASSIUM EFFERVESENT TAB 25 MEQ PO ONE (14:06)
--- NOTE | 2024-09-07 14:41 | DVHDS2 ---
Discharge Summary Date of Admission Sep 04, 2024 at 10:36 Date of Discharge: Sep 07, 2024 Labs/Diagnostic Data: Laboratory Results Test 09/07/24 11:47 09/07/24 04:59 09/04/24 10:14 09/04/24 07:18 POC Glucose 120 mg/dl (70-106) White Blood Count 5.3 10^3/uL (4.4-10.8) Red Blood Count 4.45 10^6/uL (4.0-5.20) Hemoglobin 14.2 g/dL (12.2-16.2) Hematocrit 42.9 % (36.0-46.0) Mean Corpuscular Volume 96.4 fL (80.0-100.0) Mean Corpuscular Hemoglobin 32.0 pg (28.0-32.0) Mean Corpuscular Hemoglobin Concent 33.1 g/dL (32.0-36.0) Red Cell Distribution Width 13.7 % (11.8-14.3) Platelet Count 251 10^3/uL (140-450) Mean Platelet Volume 7.5 fL (6.9-10.8) Neutrophils (%) (Auto) 55.9 % (37.0-80.0) Lymphocytes (%) (Auto) 34.3 % (10.0-50.0) Monocytes (%) (Auto) 8.4 % (0.0-12.0) Eosinophils (%) (Auto) 1.1 % (0.0-7.0) Basophils (%) (Auto) 0.3 % (0.0-2.0) Neutrophils # (Auto) 2.9 10 ^3/uL (1.6-8.6) Lymphocytes # (Auto) 1.8 10 ^3/uL (0.4-5.4) Monocytes # (Auto) 0.4 10 ^3/uL (0-1.3) Eosinophils # (Auto) 0.1 10 ^3/uL (0-0.8) Basophils # (Auto) 0 10 ^3/uL (0-0.2) Nucleated Red Blood Cells 0.1 % Sodium Level 140 mmol/L (136-145) Potassium Level 3.3 mmol/L (3.5-5.1) Chloride Level 105 mmol/L (98-107) Carbon Dioxide Level 29 mmol/L (20-31) Anion Gap 6 (5-15) Blood Urea Nitrogen 16 mg/dL (9-23) Creatinine 0.97 mg/dL (0.550-1.02) Glomerular Filtration Rate Calc 61 mL/min (>90) BUN/Creatinine Ratio 16.5 (10.0-20.0) Serum Glucose 92 mg/dL (74-106) Calcium Level 9.6 mg/dL (8.7-10.4) Urine Color Light-yellow (Yellow) Urine Clarity Clear (Clear) Urine pH 7.0 (5.0-9.0) Urine Specific [place] 1.015 (1.001-1.035) Urine Protein Negative (Negative) Urine Ketones Negative (Negative) Urine Blood Negative /uL (Negative) Urine Nitrite Negative (Negative) Urine Bilirubin Negative (Negative) Urine Urobilinogen Normal mg/dL (Negative) Urine Leukocyte Esterase Trace /uL (Negative) Urine RBC 1 /hpf (0 - 4) Urine WBC 1 /hpf (0 - 5) Urine Squamous Epithelial Cells Few /hpf (<5) Urine Bacteria None seen /hpf (None Seen) Urine Glucose Normal mg/dL (Normal) B-Type Natriuretic Peptide 22.18 pg/mL (0-100) Other Laboratory Tests 09/07/24 04:59 Brief Hx & Hospital Course: 73-year-old female with hypertension admitted for hypertensive urgency. Called son [phone] to get collateral. Per patient son, she is walking around at home with a walker, independent in most of, she lives with his brother with she he gave me the phone number to get further collateral. However her Ananya is the primary contact lens polisher while in the hospital. Patient reported has not been taking medication for the past couple of days because she missed it, however collateral from family reported that she might miss more than that as she is unable to take care of herself. Social service was consulted. Patient was started on oral antihypertensive, blood pressure a manageable level, we will not get patient to normotensive as use in the elderly. Patient will be receiving visiting nurse for help checks and medication management. Patient is stable for discharge home. Informed son Ryan and he is in understanding with the plan Condition at Discharge: Good Final Diagnosis/Problems List History of breast cancer Hypertension, doubt emergency Likely baseline dementia [id number] diabetes Discharge Disposition: Home with Health Services Discharge Instruct/Medications Diet: Regular Activity: No Restrictions, As Tolerated Medications: c/w metformin c/w amlodipine 10 start lisinopril 37 Discharge Statement: "Patient was advised to return to the ER or call 911 if any headaches, dizziness, shortness of breath, chest pain, abdominal pain, bleeding, fevers, or worsening of medical condition. Patient was counseled about treatment plan, medications, possible side effects, patientverbalized understanding. All questions were answered to the best of my ability. This discharge took greater then 30 minutes in planning, reviewing documentation, counseling the patient, and discussing with other team members." ASSESSMENT ASSESSMENT Assessment History of breast cancer Hypertension, doubt emergency Likely baseline dementia Chk-akvnhju-[id number] diabetes Date of Service: Sep 07, 2024 Billing Provider: URSULA SWIFT MD Common Visit Codes: [id number]/OBS DISCH DAY >30min URSULA SWIFT MD Sep 07, 2024 14:41
[2024-09-07 15:48] VITALS: BP 163/81; TEMP 36.7
== END 2024-09-07 16:30 | disposition home health service (06) | DRG 305 ==
LOC: EDBD 05:24 → ER 05:24 → TELE 10:36 → ER 10:38 → TELE-WESTW 11:53
PROVIDERS: ADMIT Nurse Practitioner Family; ATTEND Student in an Organized Health Care Education/Training Program
DX: I16.1 Hypertensive emergency (principal); E11.65 Type 2 diabetes mellitus with hyperglycemia; I13.0 Hypertensive heart and chronic kidney disease with heart failure and stage 1 through stage 4 chronic kidney disease, or unspecified chronic kidney disease; F03.90 Unspecified dementia, unspecified severity, without behavioral disturbance, psychotic disturbance, mood disturbance, and anxiety; I50.9 Heart failure, unspecified; N18.9 Chronic kidney disease, unspecified; E78.5 Hyperlipidemia, unspecified; Z79.84 Long term (current) use of oral hypoglycemic drugs; Z90.710 Acquired absence of both cervix and uterus; Z85.3 Personal history of malignant neoplasm of breast; Z82.5 Family history of asthma and other chronic lower respiratory diseases; Z79.899 Other long term (current) drug therapy
CPT/HCPCS: 36415; 80048; 81001; 82962; 83880; 85025; 93005; 96360; 97110; 97116; 97163; 97530; 99291; G0378; J2405